=== PATIENT | female | born 1970 | race Caucasian/White ===

== ENCOUNTER 2024-07-07 09:20 | Outpatient (AMB) | payer BC, SELFPAY ==
--- NOTE | 2024-07-07 09:34 | AMB.GYNCLNOT ---
Vital Signs 07/07/24 09:37 Height 1.6 m Height Method Stated Weight 60.838 kg Weight Measurement Method Standing Scale BMI 23.7 BP 127/77 Blood Pressure Source Automatic Cuff Blood Pressure Location Left Upper Arm Position Sitting Respiration 18 Pulse 66 Pulse Source Monitor Temp 97.2 F Temp Source Oral Pulse Oximetry (%) 97 Oxygen Delivery Method Room Air Allergies/Home Meds Allergies & Medications Allergies cephalexin Allergy (Verified 07/07/24 09:38) Medication Reconciliation No Known Home Medications 07/07/24 [History Confirmed 07/07/24] Intake Visit Data Collection New Patient or Established: New Patient (never been to [facility]) Reason for Visit:: Annual wellness exam Seen by Clinical Staff ONLY (RN/MA): No Supervisor Shuttle Preparation Required: No Do You Feel Safe at Home: Yes Authorities Contacted: N/A PCP or OBGYN visit in last 3 months: Yes Hx Now: No Are you currently on any form of Control: No Last menstrual period: 03/01/24 Pain Present Currently: No Pain Scale Used: Buck-Elmore/Numerical Pain scale:: 0 Smoking Status Smoking Status: Never smoker Branch Credit Counselor history Branch Credit Counselor History Menstrual regularity: regular Flow: normal Monthly: No How many days does period last: 4 Age at menarche: 12 Menopausal: No Currently sexually active: Yes Additional comments: Cycles spacing. LMP 03/25 Questionnaires Covid-19 Vaccine Questionnaire Has patient been vacinated for Covid-19 Have you been vacinated for Covid-19: Yes PHQ-9 PHQ-2 Over the last 2 weeks, how often have you been bothered by any of the following problems? 1. Little interest or pleasure in doing things: not at all 2. Feeling down, depressed, or hopeless: not at all Total score: 0 PHQ-9 3. Trouble falling or staying asleep, or sleeping too much: Not at all 4. Feeling tired or having little energy: Not at all 5. Poor appetite or overeating: Not at all 6. Feeling bad about yourself - or that you are a failure or have let yourself or your family down: Not at all 7. Trouble concentrating on things, such as reading the newspaper or watching television: Not at all 8. Moving or speaking so slowly that other people could have noticed? - Or the opposite - being so fidgety or restless that you have been moving around a lot more than usual: not at all 9. Thoughts that you would be better off or of hurting yourself in some way: Not at all Total score: 0 If you checked off any problems, how difficult have these problems made it for you to do your work, take care of things at home, or get along with other people?: not difficult at all Source: Developed by Drs. Delvis Zamorano, Krystyna Peter, Rod Davis and colleagues, with an educational demi from [employer]. Depression screen completed yes Social History Living Situation History Marital Status: Lives With: Family Housing: House Housing Other:: Works as an newspaper photojournalist sons age 31 and 32, 3 grandchildren Tobacco History Smoking Status: Never smoker Second Hand Smoke Exposure: No Alcohol History Alcohol Intake: Never Domestic Abuse History Do You Feel Safe at Home: Yes Past Medical History Past Medical History Have you ever been diagnosed with any of the following: Stomache/Intestinal Problems Hepatitis: Yes (age 9) Reproductive Problems Breast Cancer: No Endometriosis: No Fibroids: No Genital Herpes: Yes Gonorrhea: No Pelvic Inflammatory Disease: No Polycystic Ovarian Syndrome: No Previous Pregnancies: Yes ( x2, largest 9 lbs 13 oz) Musculoskeletal Problems Arthritis: Yes (knee) Surgical History Additional Surgical History: 2013 breast implants TOT sling ACL repair [place] 2021 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 She is tired and hurts all over . She tried HRT pellets at [facility] in [place], she states only testosterone and denies unopposed estrogen. Hx Abn pap and LEEP in 2007. Have all records from [place] PAINTER HAND Menstrual character: irregular in timing Gynecologic pain symptoms: Reports none Urogynecologic symptoms: Reports other (Had sling. No incontinence after) Menopause concerns/symptoms: Reports hot flashes Other pertinent information: Was on HRT pellets at a laser clinic. Only testosterone per pt. No records available Review of Systems Review of Systems Narrative Review of Systems: + fatigue, difficulty sleeping and + hurts all over Genitourinary Genitourinary: Reports hot flashes Exam General General Appearance: alert, in no apparent distress, comfortable, cooperative, healthy appearing and well groomed Neck Neck exam: Present normal inspection, full ROM and trachea midline Chest Chest inspection: Present normal inspection and symmetric chest wall rise Exp Chest Breast: bilateral: other (Breast exam normal. Implants in place) Resp Respiratory exam: Present normal lung sounds bilaterally Card Cardiovascular exam: Present regular rate, normal rhythm and normal heart sounds Abdominal Abdominal exam: Present soft, normal bowel sounds and scar (Abdominoplasty scar) External exam: Present normal external exam Speculum exam: Present normal speculum exam Bimanual exam: Present normal bimanual exam (uterus anteverted + uterine prolapse, 1+ cystocele) Extremities Extremities exam: Present normal inspection and full ROM Psych Psychiatric exam: Present normal affect and normal mood Skin Skin exam: Present warm, dry, intact and normal color Office Procedures OB Clinic LOC & Office Proc's Nursing/Assessment Patient Status: Initial/New Patient OB Clinic Nursing Assessment: BP Monitoring, Medication Reconciliation, Update PMH in EMR and Vital Signs OB Clinic Coordination of Care: Education Simp Pt/Fam, Lab and Imaging orders, Results/Orders obtained and Staff clarify orders Miscellaneous Interventions: Breast Exam and Pelvic/Pap Smear Set up New Patient Charge New Patient Point Assignment: [id number] New Patient Point Charge: POWERPLANT OPERATOR Level 4 ([id number]) In Clinic Procedures Pap Smear: Yes Assessment & Plan Diagnosis / Problem List (1) Encounter for Routine Gynecological Examination: Qualifiers: Gynecological examination findings: abnormal findings ABSENT Qualified Code(s): Z01.419 - Encounter for gynecological examination (general) (routine) without abnormal findings Assessment and Plan: Pap with HPV done, breast exam done and encouraged. Mammogram ordered. (2) Perimenopausal: Status: Acute Assessment and Plan: Discouraged pellet placement especially from walk in clinics or laser clinics who do not have experience in HRT and working up complications. If the patient feels she needs HRT, she can make an appointment to discuss safe HRT such as patches. Pt will call as needed. PAINTER HAND: Papsmear Pap Smear Procedure Chaparone in room during procedure?: No Pre-op diagnosis general: Annual wellness, hx LEEP in 2007 Post-op diagnosis procedure note: Same Procedure Notes:: Pap with high risk HPV performed Papsmear completed: yes
[2024-07-07 09:37] VITALS: BP 127/77; PULSE 66; RESP 18; TEMP 36.2; O2SAT 97; BMI 23.7
== END 2024-07-07 10:13 | disposition home or self-care (01) ==
LOC: HODSOBC 09:20
PROVIDERS: Supervising Provider Obstetrics & Gynecology; Visit Provider Obstetrics & Gynecology
DX: Z01.419 Encounter for gynecological examination (general) (routine) without abnormal findings (principal); Z11.51 Encounter for screening for human papillomavirus (HPV); N95.1 Menopausal and female climacteric states; R23.2 Flushing; Z98.82 Breast implant status
CPT/HCPCS: 99204; Q0091; G0463